=== PATIENT | female | born 1975 | race Caucasian/White ===

== ENCOUNTER 2019-09-14 16:19 | Outpatient (CLI) | payer SELFPAY ==
--- NOTE | 2019-09-14 17:10 | US_ITS ---
WS: [id number] THYROID ULTRASOUND HISTORY: enlarged thyroid COMPARISON: 01/14/2017 Right lobe: 6.6 cm x 3.3 cm x 2.6 cm. Volume: 30.0 cm3. Markedly enlarged heterogeneous lobulated gland with increased vascularity. No discrete nodule is chandu ntified. Gland has slightly increased in size since the prior examination. Left lobe: 5.9 cm x 2.3 cm x 1.7 cm. Volume: 11.8 cm3. Enlarged gland with diffuse coarsened echotexture and lobulation. No discrete nodule. Marked increase d vascularity. Isthmus: 0.6 cm. US/US thyroid [id number] IMPRESSION: 1. Markedly enlarged heterogeneous hypervascular thyroid gland. 2. Slightly progressed since 2017. 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
== END 2019-09-14 16:20 | disposition home or self-care (01) ==
LOC: RAD 16:24
PROVIDERS: Family Provider Nurse Practitioner Family; PCP Nurse Practitioner Family; Visit Provider Registered Nurse
DX: E04.9 Nontoxic goiter, unspecified (principal); E61.1 Iron deficiency; E06.3 Autoimmune thyroiditis
CPT/HCPCS: 76536; 80053; 82607; 84439; 84443; 85025

== ENCOUNTER → 2019-09-20 10:37 | Outpatient (BNVA) | payer SELFPAY | PROVIDERS: Family Provider Nurse Practitioner Family; PCP Nurse Practitioner Family; Visit Provider Registered Nurse | DX: E61.1 Iron deficiency (principal); E06.3 Autoimmune thyroiditis; F41.9 Anxiety disorder, unspecified; F32.9 Major depressive disorder, single episode, unspecified | CPT/HCPCS: 82607; 82746; 83540; 83550; 84466 ==

== ENCOUNTER → 2019-09-29 13:54 | Outpatient (BNVA) | payer SELFPAY | PROVIDERS: Family Provider Nurse Practitioner Family; PCP Nurse Practitioner Family; Visit Provider Registered Nurse | DX: E61.1 Iron deficiency (principal); F32.9 Major depressive disorder, single episode, unspecified; F41.9 Anxiety disorder, unspecified | CPT/HCPCS: 82272 ==

== ENCOUNTER → 2019-11-09 11:49 | Outpatient (BNVA) | payer SELFPAY | PROVIDERS: Family Provider Nurse Practitioner Family; PCP Nurse Practitioner Family; Visit Provider Registered Nurse | DX: I10 Essential (primary) hypertension (principal); E03.9 Hypothyroidism, unspecified; D50.9 Iron deficiency anemia, unspecified | CPT/HCPCS: 84439; 84443; 84480; 85025 ==

== ENCOUNTER → 2020-01-03 09:38 | Outpatient (BNVA) | payer SELFPAY | PROVIDERS: Family Provider Nurse Practitioner Family; PCP Nurse Practitioner Family; Visit Provider Registered Nurse | DX: E61.1 Iron deficiency (principal); E03.9 Hypothyroidism, unspecified; N64.4 Mastodynia; N63.10 Unspecified lump in the right breast, unspecified quadrant; N64.3 Galactorrhea not associated with childbirth; J45.20 Mild intermittent asthma, uncomplicated | CPT/HCPCS: 84443; 85025 ==

== ENCOUNTER → 2020-08-22 10:57 | Outpatient (BNVA) | payer SELFPAY | PROVIDERS: Family Provider Nurse Practitioner Family; PCP Nurse Practitioner Family; Visit Provider Registered Nurse | DX: E03.9 Hypothyroidism, unspecified (principal); E61.1 Iron deficiency; I10 Essential (primary) hypertension; G60.9 Hereditary and idiopathic neuropathy, unspecified | CPT/HCPCS: 84432; 84443; 85025; 86376; 86800 ==

== ENCOUNTER → 2020-09-12 09:56 | Outpatient (BNVA) | payer SELFPAY | PROVIDERS: Family Provider Nurse Practitioner Family; PCP Nurse Practitioner Family; Referring Provider Registered Nurse; Visit Provider Internal Medicine | DX: E03.9 Hypothyroidism, unspecified (principal); E06.3 Autoimmune thyroiditis; N64.3 Galactorrhea not associated with childbirth | CPT/HCPCS: 99204 ==

== ENCOUNTER → 2020-09-14 08:26 | Outpatient (BNVA) | payer SELFPAY | PROVIDERS: Family Provider Nurse Practitioner Family; PCP Nurse Practitioner Family; Visit Provider Internal Medicine | DX: E03.9 Hypothyroidism, unspecified (principal) | CPT/HCPCS: 84439; 84443; 84480 ==

== ENCOUNTER → 2020-10-02 08:29 | Outpatient (BNVA) | payer SELFPAY | PROVIDERS: Family Provider Nurse Practitioner Family; PCP Nurse Practitioner Family; Visit Provider Internal Medicine | DX: E03.9 Hypothyroidism, unspecified (principal); N64.3 Galactorrhea not associated with childbirth | CPT/HCPCS: 84146 ==

== ENCOUNTER 2020-11-02 10:18 | Outpatient (CLI) | payer SELFPAY ==
--- NOTE | 2020-11-02 11:00 | MR_ITS ---
WS: [id number] MRI BRAIN WITH AND WITHOUT CONTRAST HISTORY: migraine COMPARISON: CT head 10/16/2014 TECHNIQUE: Multiplanar imaging performed through the brain with MultiHance 15 ml's IV. No acute infarcts are seen. Dyson-white matter differentiation is well preserved. No susceptibility artifacts or prior lacunar infarcts. Ventricles and extra-axial spaces are normal. Clivus and pituitary gland are normal. This study was not performed as a pituitary MRI but no abnorma lity at the sella turcica. Visualized posterior fossa and brainstem are also normal. Postcontrast images are negative for masses or vascular malformations. Dural venous sinuses are normal. Paranasal sinuses: Well aerated with no significant disease. Mastoid air cells: Normal. Calvarium and scalp: Normal. MR/MR head wo/w con [id number] IMPRESSION: 1. Normal MRI brain. No infarct or mass. 2. No abnormality noted in the sella turcica or pituitary gland.
[2020-11-02] MEDS: gadobenate dimeglumine 20 mL vial IV (11:51)
== END 2020-11-02 10:19 | disposition home or self-care (01) ==
LOC: RADSHAW 10:23
PROVIDERS: PCP Nurse Practitioner Family; Visit Provider Internal Medicine
DX: G43.909 Migraine, unspecified, not intractable, without status migrainosus (principal)
CPT/HCPCS: 70553; A9577

== ENCOUNTER → 2021-02-14 08:48 | Outpatient (BNVA) | payer OTHER, SELFPAY | PROVIDERS: PCP Registered Nurse; Visit Provider Registered Nurse | DX: F41.9 Anxiety disorder, unspecified (principal); F32.9 Major depressive disorder, single episode, unspecified; G60.9 Hereditary and idiopathic neuropathy, unspecified; Z20.822 Contact with and (suspected) exposure to COVID-19 | CPT/HCPCS: 87635 ==

== ENCOUNTER → 2021-10-29 11:35 | Outpatient (BNVA) | payer MEDICAID, SELFPAY | PROVIDERS: PCP Registered Nurse; Visit Provider Registered Nurse | DX: G60.9 Hereditary and idiopathic neuropathy, unspecified (principal); F41.9 Anxiety disorder, unspecified; F32.9 Major depressive disorder, single episode, unspecified; E06.3 Autoimmune thyroiditis; E61.1 Iron deficiency | CPT/HCPCS: 84443; 85025 ==

== ENCOUNTER → 2022-10-20 09:54 | Outpatient (BNVA) | payer MEDICAID, SELFPAY | PROVIDERS: PCP Registered Nurse; Visit Provider Registered Nurse | DX: E06.3 Autoimmune thyroiditis (principal); F41.9 Anxiety disorder, unspecified; F32.9 Major depressive disorder, single episode, unspecified; E22.1 Hyperprolactinemia; G60.9 Hereditary and idiopathic neuropathy, unspecified; E03.9 Hypothyroidism, unspecified; G62.9 Polyneuropathy, unspecified; E61.1 Iron deficiency; R53.83 Other fatigue | CPT/HCPCS: 80053; 84146; 84439; 84443; 84481; 85025; 86038 ==

== ENCOUNTER → 2023-01-26 12:22 | Outpatient (BNVA) | payer MEDICAID, SELFPAY | PROVIDERS: PCP Registered Nurse; Visit Provider Internal Medicine Rheumatology | DX: Z79.899 Other long term (current) drug therapy (principal); M19.90 Unspecified osteoarthritis, unspecified site; Z11.59 Encounter for screening for other viral diseases; M45.6 Ankylosing spondylitis lumbar region | CPT/HCPCS: 36415; 82306; 85651; 86140; 86431; 86480; 86704; 86803; 86812; 87340 ==

== ENCOUNTER → 2023-06-18 09:34 | Outpatient (BNVA) | payer MEDICAID, SELFPAY | PROVIDERS: PCP Registered Nurse; Visit Provider Registered Nurse | DX: E03.9 Hypothyroidism, unspecified (principal); F41.9 Anxiety disorder, unspecified; F32.9 Major depressive disorder, single episode, unspecified; M79.7 Fibromyalgia | CPT/HCPCS: 80053; 84443; 85025 ==

== ENCOUNTER → 2024-02-18 11:05 | Outpatient (BNVA) | payer MEDICAID, SELFPAY | PROVIDERS: PCP Registered Nurse; Visit Provider Registered Nurse | DX: F32.A Depression, unspecified (principal); E03.9 Hypothyroidism, unspecified; R39.9 Unspecified symptoms and signs involving the genitourinary system | CPT/HCPCS: 80053; 81000; 84439; 84443; 85025 ==

== ENCOUNTER → 2024-06-21 08:25 | Outpatient (BNVA) | payer MEDICAID, SELFPAY | PROVIDERS: PCP Registered Nurse; Visit Provider Registered Nurse | DX: Z01.419 Encounter for gynecological examination (general) (routine) without abnormal findings (principal); E03.9 Hypothyroidism, unspecified; E22.1 Hyperprolactinemia; Z11.4 Encounter for screening for human immunodeficiency virus [HIV] | CPT/HCPCS: 84146; 84439; 84443; 87070; 87205; 87624; 87806 ==

== ENCOUNTER → 2024-06-22 08:25 | Outpatient (BNVA) | payer MEDICAID, SELFPAY | PROVIDERS: PCP Registered Nurse; Visit Provider Registered Nurse | DX: Z01.419 Encounter for gynecological examination (general) (routine) without abnormal findings (principal) | CPT/HCPCS: 87491; 87591; 87661 ==

== ENCOUNTER 2024-10-31 16:46 | Emergency (ER) | payer MEDICAID, SELFPAY ==
[2024-10-31 16:46] VITALS: BP 130/75; PULSE 82; RESP 16; TEMP 36.7; O2SAT 96; BMI 26.4
--- NOTE | 2024-10-31 16:47 | ECG_ITS ---
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 Measurements Intervals [place] Rate: 82 P: 60 MI: 141 QRS: 74 QRSD: 105 T: 48 QT: 373 QTc: 437 Interpretive Statements SINUS RHYTHM INCOMPLETE RIGHT BUNDLE BRANCH BLOCK [90+ ms QRS DURATION, TERMINAL R IN V1/V2, 40+ ms S IN I/aVL/V4/V5/V6] Compared to ECG 06/28/2019 01:16:21 No significant changes Electronically Signed On 10-31-2024 21:29:59 CDT by Titi Perez M.D. [id number]
--- NOTE | 2024-10-31 16:47 | XRR_ITS ---
PROCEDURE INFORMATION: Exam: XR Chest Exam date and time: 10/31/2024 4:48 PM Age: 49 years old Clinical indication: Pain; Chest pressure; Additional info: Cp TECHNIQUE: Imaging protocol: Radiologic exam of the chest. Views: 1 view. COMPARISON: No relevant prior studies available. FINDINGS: Lungs: Unremarkable. No consolidation. Pleural spaces: Unremarkable. No pleural effusion. No pneumothorax. Heart/Mediastinum: Unremarkable. No cardiomegaly. Bones/joints: Unremarkable. XR/XR chest 1V portable [id number] IMPRESSION: No acute findings.
--- NOTE | 2024-10-31 16:50 | ED_ITS ---
HPI - Chest Pain 2 General: Chief Complaint: Chest Pain Stated Complaint: chest pain - dizziness Time Seen by Provider: 10/31/24 16:48 Source: patient and EMS Mode of arrival: EMS Limitations: no limitations History of Present Illness: 49-year-old female who states that she h as been having chest pain that started roughly an hour ago says a pressure pain in the center of her chest rates it a 7 out of 10 she denies any diaphoresis no history of heart disease states she has been under lots of stress lately. She is received aspirin nitro and route no improvement. She denies any cough or fever Associated symptoms: Deny abdominal pain, dyspnea, fever(s), nausea or vomiting Related Data Home Medications ?Medication ?Instructions ?Recorded ?Confirmed multivitamin 1 tab PO DAILY 05/31/2410/10 Previous Rx's ?Medication ?Instructions ?Recorded pregabalin 150 mg capsule (Lyrica) 150 mg PO TID 30 da ys #90 caps 05/31/24 levothyroxine 88 mcg tablet See Rx Instructions .Route 07/07/24 .COMPLEX #90 tabs paroxetine HCl 40 mg tablet See Rx Instructions .Route 07/07/24 .COMPLEX #90 tabs albuterol sulfate 90 mcg/actuation See Rx Instructions .Route 07/29/24 aerosol inhaler (Ventolin HFA) .COMPLEX #18 grams Allergies Allergy/AdvReac Type Severity Reaction Status Date / Time methocarbamol (From Robaxin) Allergy Severe Siezure Verified 06/21/24 13:39 gabapentin Allergy Mild ADR-Migrain Verified 06/21/24 13:39 e Review of Systems 2 Const: Denies: fever(s), chills, body aches or change in appetite ENMT: Denies: throat pain or dental pain Card: Reports: chest pain Resp: Denies: dyspnea GI: Denies: abdominal pain, nausea, vomiting or diarrhea Musc: Denies: neck pain or back pain Skin/Breast: Denies: rash Neuro: Denies: headache(s) PFSH ED 2 PFSH: Medical History Uveitis History of recurrent uveitis, not currently active Inflammatory arthritis Fibromyalgia Joint pain High risk medication use Enlarged thyroid Iron deficiency Anxiety and depression Peripheral neuropathy, idiopathic Surgical History Hx of tubal ligation History of open reduction and internal fixation (ORIF) procedure Family History Other Diabetes Family history of premature coronary artery disease Heart disease Hypertension Rheumatoid arthritis Denies family history of Lupus Chronic kidney disease (CKD) Lung disease Cancer Stroke Social History Smoking and tobacco/nicotine status: current every day tobacco/nicotine user Alcohol intake: current Alcohol intake frequency: holidays/special occasions only Substance/Drug Use: never Adopted: No Caregiver/support person: No Lives independently: No Household members: family service: No Current occupational status: unemployed Sexually active: Yes Do you think of yourself as: Straight/Heterosexual Current gender identity: Female Physical Exam 2 Const: COMMON NORMALS: no acute distress, patient oriented x3 and healthy appearing HENMT: COMMON NORMALS: normocephalic and atraumatic HEAD & SCALP: n ormocephalic and atraumatic Eye: COMMON NORMALS: conjunctivae normal CONJUNCTIVA: Yes conjunctivae normal Neck/C-Spine: COMMON NORMALS: full ROM and supple Chest: COMMONS NORMALS: normal inspection of the chest and normal palpation of entire chest wall Resp: COMMON NORMALS: normal respiratory effort, No retractions, No use of accessory muscles and clear to auscultation bilaterally AUSCULTATION: clear to auscultation bilaterally Cardio: COMMON NORMALS: regular rate, regular rhythm and No murmurs present (Cardio) RATE: regular rate RHYTHM: regular rhythm GI: COMMON NORMALS: Normal to inspection, nondistended, normoactive bowel sounds present, Soft to palpation, non-tender and no masses PALPATION: Yes Soft to palpation Extremity: COMMON NORMALS: normal to inspection and full ROM Neuro: COMMON NORMALS: patient oriented x3, moves all extremities and no focal motor deficits Psych: COMMON NORMALS: mental status grossly normal, Normal thought process present and cooperative THOUGHT PROCESS: Normal thought process present Skin: COMMON NORMALS: no rashes or lesions noted and no wounds GENERAL SKIN EXAM: no rashes or lesions noted Course 2 Vital Signs: Vital signs: Vital Signs Temperature 98.1 F 10/31/24 16:46 Pulse Rate 68 10/31/24 18:00 Respiratory Rate 18 10/31/24 18:07 Blood Pressure 110/68 10/31/24 18:00 Pulse Oximetry 98 10/31/24 18:00 Oxygen Delivery Me thod Room Air 10/31/24 18:00 MDM - Chest Pain Medical Decision Making Patient presents for chest pains atypical in nature initial repeat troponin are negative no signs of ACS she has no signs of dissection or pulm embolism her pains improved here she is stable for discharge follow-up with PCP return if worsening. Medical Records I reviewed the patient's medical records. Lab Data I reviewed the patient's lab results. 10/31/24 16:57 10/31/24 16:57 Radiology Impressions Chest X-Ray 10/31/24 16:47 IMPRESSION: No acute findings. Laboratory Results WBC 5.99 10^3/uL (3.29-11.43) 10/31/24 16:57 RBC 3.68 10^6/uL (3.85-5.65) L 10/31/24 16:57 Hgb 8.80 g/dL (11.27-16.99) L 10/31/24 16:57 Hct 28.8 % (36-47) L 10/31/24 16:57 MCV 78.3 fl (85-98) L 10/31/24 16:57 MCH 23.9 pg (27-33) L 10/31/24 16:57 MCHC 30.6 g/dL (30-55) 10/31/24 16:57 RDW 23.2 % (12.1-15.1) H 10/31/24 16:57 Plt Count 309 10^3/cmm (157-399) 10/31/24 16:57 MPV 8.7 fL (7.4-10.4) 10/31/24 16:57 Neut % (Auto) 52.2 % 10/31/24 16:57 Lymph % (Auto) 36.7 % 10/31/24 16:57 [place] % (Auto) 8.3 % 10/31/24 16:57 Eos % (Auto) 1.7 % 10/31/24 16:57 Baso % (Auto) 0.8 % 10/31/24 16:57 Neut # (Auto) 3.12 10^3/uL (1.8-7.7) 10/31/24 16:57 Lymph # (Auto) 2.2 10^3/uL (0.8-4.8) 10/31/24 16:57 [place] # (Auto) 0.5 10^3/uL (0.2-0.9) 10/31/24 16:57 Eos # (Auto) 0.1 10^3/uL (0.0-0.8) 10/31/24 16:57 Baso # (Auto) 0.1 10^3/uL (0.0-0.1) 10/31/24 16:57 Nucleated RBC % (auto) 0 % 10/31/24 16:57 Nucleated RBCs # 0.0 /100WBC 10/31/24 16:57 Sodium 138 mmol/L (136-145) 10/31/24 16:57 Potassium 3.8 mmol/L (3.5-5.1) 10/31/24 16:57 Chloride 103 mmol/L (98-107) 10/31/24 16:57 Carbon Dioxide 23 mmol/L (22-29) 10/31/24 16:57 Anion Gap 15.8 (5-19) 10/31/24 16:57 BUN 15 mg/dL (6-20) 10/31/24 16:57 Creatinine 0.5 mg/dL (0.5-0.9) 10/31/24 16:57 GFR Calculation 132.2 mL/min (90-130) H 10/31/24 16:57 Glucose 92 mg/dL (65-115) 10/31/24 16:57 Calculated Osmolality 286 mOsm/kg (285-295) 10/31/24 16:57 Calcium 8.7 mg/dL (8.5-10.5) 10/31/24 16:57 Total Bilirubin 0.2 mg/dL (0.15-1.2) 10/31/24 16:57 AST 10 U/L (0-32) 10/31/24 16:57 ALT < 5 U/L (0-33) 10/31/24 16:57 Alkaline Phosphatase 45 U/L (35-105) 10/31/24 16:57 Troponin T Baseline < 6 ng/L (0-10) 10/31/24 16:57 Troponin T 120 Minute 6.00 ng/L (0-10) 10/31/24 18:45 Delta Troponin T 0.74317 ABS# (0-10) 10/31/24 18:45 Total Protein 7.1 g/dL (6.6-8.7) 10/31/24 16:57 Albumin 4.0 g/dL (3.5-5.2) 10/31/24 16:57 Globulin 3.1 g/dL (1.3-4.6) 10/31/24 16:57 Lipase 14 U/L (13-60) 10/31/24 16:57 TSH 7.73 uIU/mL (0.27-4.20) H 10/31/24 16:57 All radiology interpretation(s) finalized by discharge EKG Data EKG 1: I personally reviewed and interpreted this EKG as follows: EKG interpretation date: 10/31/24 EKG interpretation time: 16:47 Interpretation: nsr hr [address] elevation qrs 105qtc 412 Discharge Plan Discharge Patient Disposition: Home Clinical Impression: Chest pain Condition: Stable Prescriptions: No Action multivitamin Tablet 1 tab PO DAILY pregabalin [Lyrica] 150 mg capsule 150 mg PO TID 30 Days Qty: 90 2RF levothyroxine 88 mcg tablet See Rx Instructions .ROUTE .COMPLEX Qty: 90 0RF Dose Instruction: TAKE 1 TABLET BY MOUTH DAILY Rx Instructions: TAKE 1 TABLET BY MOUTH DAILY paroxetine HCl 40 mg tablet See Rx Instructions .ROUTE .COMPLEX Qty: 90 0RF Dose Instruction: TAKE 1 TABLET BY MOUTH DAILY Rx Instructions: TAKE 1 TABLET BY MOUTH DAILY albuterol sulfate [Ventolin HFA] 90 mcg/actuation HFA aerosol inhaler See Rx Instructions .ROUTE .COMPLEX Qty: 18 0RF Dose Instruction: INHALE 1 PUFF FOUR TIMES DAILY NEEDED FOR SHORTNESS OF BREATH OR WHEEZING Rx Instructions: INHALE 1 PUFF FOUR TIMES DAILY NEEDED FOR SHORTNESS OF BREATH OR WHEEZING Discharge Orders: Discharge ED (Routine); Ordered 10/31/24 Ordered By: Jaleel Santiago Referrals: Shila Yanez FNP [Primary Care Provider] - 4-7 days Discharge Diet: Advance as tolerated Discharge Activity: Resume usual activity Patient Instructions: Chest Pain (ED) Print Language: Occitan Coding Level of Care Code ED Speech Language Specialist for Ирина Joshi
[2024-10-31 17:05] LABS: Basophils # 0.1 10^3/uL (0.0-0.1); Basophils % 0.8 %; Eosinophils # 0.1 10^3/uL (0.0-0.8); Eosinophils % 1.7 %; Hematocrit 28.8 % (36-47); Lymphocytes # 2.2 10^3/uL (0.8-4.8); Lymphocytes % 36.7 %; Mean Corpuscular HGB Conc 30.6 g/dL (30-55); Mean Corpuscular Hemoglobin 23.9 pg (27-33); Mean Corpuscular Volume 78.3 fl (85-98); Mean Platelet Volume 8.7 fL (7.4-10.4); Monocytes # 0.5 10^3/uL (0.2-0.9); Monocytes % 8.3 %; Neutrophils # 3.12 10^3/uL (1.8-7.7); Neutrophils % 52.2 %; Nucleated Red Blood Cells % 0 %; Platelet Count 309 10^3/cmm (157-399); Red Blood Count 3.68 10^6/uL (3.85-5.65); Red Cell Distribution Width 23.2 % (12.1-15.1); White Blood Count 5.99 10^3/uL (3.29-11.43)
[2024-10-31 17:24] LABS: Slide Review Slide Review Perform
[2024-10-31 17:28] LABS: Troponin(5th) Baseline < 6 ng/L (0-10)
[2024-10-31 17:46] LABS: Alanine Aminotransferase < 5 U/L (0-33); Alkaline Phosphatase 45 U/L (35-105); Anion Gap 15.8 (5-19); Aspartate Amino Transferase 10 U/L (0-32); Blood Urea Nitrogen 15 mg/dL (6-20); Calcium 8.7 mg/dL (8.5-10.5); Carbon Dioxide 23 mmol/L (22-29); Chloride 103 mmol/L (98-107); Creatinine Clr Calc Pharmacy 118.7533; Globulin 3.1 g/dL (1.3-4.6); Glomerular Filtration Rate 132.2 mL/min (90-130); Glucose 92 mg/dL (65-115); Lipase 14 U/L (13-60); Osmolality Calculated 286 mOsm/kg (285-295); Potassium 3.8 mmol/L (3.5-5.1); Sodium 138 mmol/L (136-145); Thyroid Stimulating Hormone 7.73 uIU/mL (0.27-4.20); Total Bilirubin 0.2 mg/dL (0.15-1.2); Total Protein 7.1 g/dL (6.6-8.7)
[2024-10-31 18:00] VITALS: BP 110/68; PULSE 68; O2SAT 98
[2024-10-31 18:07] VITALS: RESP 18
[2024-10-31] MEDS: morphine 4 mg/mL SDV 1 mL IVP (18:07)
--- NOTE | 2024-10-31 18:47 | ECG_ITS ---
[facility] Test Date: 2024-10-31 Pat Name: Gail Momin Department: Room: Gender: Female Prescriptionist: : 1975 Requested By: Jaleel Santiago Order Number: [id number] Cheri MD: Titi Perez M.D. Measurements Intervals [place] Rate: 69 P: 48 [place]: 141 QRS: 78 QRSD: 102 T: 51 QT: 390 QTc: 419 Interpretive Statements SINUS RHYTHM INCOMPLETE RIGHT BUNDLE BRANCH BLOCK [90+ ms QRS DURATION, TERMINAL R IN V1/V2, 40+ ms S IN I/aVL/V4/V5/V6] Compared to ECG 10/31/2024 16:47:00 No significant changes Electronically Signed On 10-31-2024 21:36:02 CDT by Titi Perez M.D. [email or web address] [id number]
[2024-10-31 19:07] LABS: Troponin 5 2HR Delta 0.00001 ABS# (0-10)
[2024-10-31 19:19] VITALS: BP 128/45; PULSE 74; RESP 15; O2SAT 98
[2024-10-31 19:20] VITALS: BP 128/45; PULSE 74; O2SAT 98
== END 2024-10-31 19:20 | disposition home or self-care (01) ==
PROVIDERS: Emergency Provider Emergency Medicine; PCP Registered Nurse
DX: R07.9 Chest pain, unspecified (principal); Z72.0 Tobacco use
CPT/HCPCS: 36415; 71045; 80053; 83690; 84443; 84484; 85025; 93005; 96374; 99285; J2270

== ENCOUNTER 2024-11-23 09:16 | Outpatient (CLI) | payer MEDICAID, SELFPAY ==
--- NOTE | 2024-11-23 09:21 | US_ITS ---
WS: [id number] THYROID ULTRASOUND HISTORY: AUTOIMMUNE THYROIDITIS/ENLARGED THYROID COMPARISON: 09/14/2019 Right lobe: 3.5 cm x 2.4 cm x 5.5 cm (w x ap x l). Volume: 22.2 cm3. Enlarged heterogeneous, hypoechoic thyroid with echogenic fibrous septa. Mild increased vascularity. Size is slightly decreased since the prior study. No discrete nodule. Left lobe: 2.4 cm x 2.1 cm x 5.7 cm (w x ap x l). Volume: 13.4 cm3. Mildly enlarged hypoechoic nodular thyroid. Echogenic fibrous septa. No discrete mass. Mild increased vascularity. Isthmus: 0.8 cm. US/US thyroid [id number] IMPRESSION: 1. 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 2. No discrete nodules for which biopsy should be recommended.
== END 2024-11-23 09:17 | disposition home or self-care (01) ==
PROVIDERS: PCP Registered Nurse; Visit Provider Registered Nurse
DX: E06.3 Autoimmune thyroiditis (principal); E04.9 Nontoxic goiter, unspecified; R93.89 Abnormal findings on diagnostic imaging of other specified body structures
CPT/HCPCS: 76536

== ENCOUNTER 2024-11-27 21:42 | Inpatient (IN) | payer MEDICAID, SELFPAY ==
[2024-11-27 21:44] VITALS: BP 111/73; PULSE 91; RESP 17; TEMP 36.8; O2SAT 96; BMI 24.5
--- NOTE | 2024-11-27 21:59 | PC.NURSE ---
Called Poison Control on overdose of Pregablin, fluoxetine, and Headache relief: Acetaminophen 250mg/ASA 250mg/Caffeine 65mg. Per the RN from poison control monitor for drowsiness, tachypnea, ataxia, increased anxiety. If pt's labs works shows low K+ then tx and elevated acetaminophen levels then start antidote. Per the RN hold benzos for time being due to possible drowsiness, and use fluids for supportive care if needed.
[2024-11-27 22:01] LABS: Basophils # 0.1 10^3/uL (0.0-0.1); Basophils % 0.6 %; Eosinophils # 0.1 10^3/uL (0.0-0.8); Hematocrit 30.5 % (36-47); Lymphocytes # 2.6 10^3/uL (0.8-4.8); Lymphocytes % 30.9 %; Mean Corpuscular HGB Conc 30.2 g/dL (30-55); Mean Corpuscular Hemoglobin 23.7 pg (27-33); Mean Corpuscular Volume 78.6 fl (85-98); Mean Platelet Volume 9.7 fL (7.4-10.4); Monocytes # 0.9 10^3/uL (0.2-0.9); Monocytes % 10.8 %; Neutrophils # 4.67 10^3/uL (1.8-7.7); Neutrophils % 56.5 %; Nucleated Red Blood Cells % 0 %; Platelet Count 383 10^3/cmm (157-399); Red Blood Count 3.88 10^6/uL (3.85-5.65); Red Cell Distribution Width 21.7 % (12.1-15.1); White Blood Count 8.26 10^3/uL (3.29-11.43)
--- NOTE | 2024-11-27 22:05 | ED_ITS ---
Documented by User: Jaleel Santiago MD 11/27/24 22:08 HPI - Overdose 2 General: Chief Complaint: Overdose Stated Complaint: SI Time Seen by Provider: 11/27/24 21:43 Source: patient and EMS Mode of arrival: EMS Limitations: no limitations History of Present Illness: 49-year-old female is here after a suici de attempt by overdose she states that she took her bottle of pregabalin along with fluoxetine an unknown amount of Tylenol at 8:30 PM. She states that it is Mother's Day and she misses her mom and was trying to kill herself. Related Data Home Medications ?Medication ?Instructions ?Recorded ?Confirmed multivitamin 1 tab PO DAILY 05/31/2410/19 Previous Rx's ?Medication ?Instructions ?Recorded albuterol sulfate 90 mcg/actuation See Rx Instructions .Route 07/29/24 aerosol inhaler (Ventolin HFA) .COMPLEX #18 grams ferrous sulfate 325 mg (65 mg 325 mg PO DAILY 30 days #30 tabs 11/08/24 iron) tablet fluoxetine 20 mg capsule (Prozac) 20 mg PO DAILY 30 da ys #30 caps 11/08/24 levothyroxine 88 mcg tablet See Rx Instructions .Route 11/08/24 .COMPLEX #30 tabs pregabalin 150 mg capsule (Lyrica) 150 mg PO TID 30 da ys #90 caps 11/08/24 Allergies Allergy/AdvReac Type Severity Reaction Status Date / Time methocarbamol (From Robaxin) Allergy Severe Siezure Verified 11/08/24 10:57 gabapentin Allergy Mild ADR-Migrain Verified 11/08/24 10:57 e Review of Systems 2 Const: Denies: fever(s), chills, body aches or change in appetite ENMT: Denies: throat pain or dental pain Card: Denies: chest pain Resp: Denies: dyspnea GI: Denies: abdominal pain, nausea, vomiting or diarrhea Musc: Denies: neck pain or back pain Skin/Breast: Denies: rash Neuro: Denies: headache(s) Psych: Reports: depression and suicidal ideation PFS ED 2 PFSH: Medical History Uveitis History of recurrent uveitis, not currently active Inflammatory arthritis Fibromyalgia Joint pain High risk medication use Enlarged thyroid Iron deficiency Anxiety and depression Peripheral neuropathy, idiopathic Surgical History Hx of tubal ligation History of open reduction and internal fixation (ORIF) procedure Family History Other Diabetes Family history of premature coronary artery disease Heart disease Hypertension Rheumatoid arthritis Denies family history of Lupus Chronic kidney disease (CKD) Lung disease Cancer Stroke Social History Smoking and tobacco/nicotine status: current every day tobacco/nicotine user Alcohol intake: current Alcohol intake frequency: holidays/special occasions only Substance/Drug Use: never Adopted: No Caregiver/support person: No Lives independently: No Household members: family service: No Current occupational status: unemployed Sexually active: Yes Do you think of yourself as: Straight/Heterosexual Current gender identity: Female Physical Exam 2 Const: COMMON NORMALS: no acute distress, patient oriented x3 and healthy appearing HENMT: COMMON NORMALS: normocephalic and atraumatic HEAD & SCALP: n ormocephalic and atraumatic Eye: COMMON NORMALS: conjunctivae normal CONJUNCTIVA: Yes conjunctivae normal Neck/C-Spine: COMMON NORMALS: full ROM and supple Chest: COMMONS NORMALS: normal inspection of the chest Resp: COMMON NORMALS: normal respiratory effort Cardio: COMMON NORMALS: regular rate RATE: regular rate Extremity: COMMON NORMALS: normal to inspection and full ROM Neuro: COMMON NORMALS: patient oriented x3, moves all extremities and no focal motor deficits Psych: COMMON NORMALS: mental status grossly normal, Normal thought process present and cooperative MOOD & AFFECT: Yes depressed mood THOUGHT PROCESS: Normal thought process present THOUGHT CONTENT: Yes Suicidality present Skin: COMMON NORMALS: no rashes or lesions noted and no wounds GENERAL SKIN EXAM: no rashes or lesions noted Course 2 Vital Signs: Vital signs: Vital Signs Temperature 98.0 F 11/28/24 00:42 Pulse Rate 87 11/28/24 00:48 Respiratory Rate 16 11/28/24 00:48 Blood Pressure 90/56 11/28/24 00:48 Pulse Oximetry 98 11/28/24 00:48 Oxygen Delivery Me thod Room Air 11/28/24 00:42 MDM - Overdose Lab Data 11/27/24 21:56 11/28/24 00:53 Laboratory Results WBC 8.26 10^3/uL (3.29-11.43) 11/27/24 21:56 RBC 3.88 10^6/uL (3.85-5.65) 11/27/24 21:56 Hgb 9.20 g/dL (11.27-16.99) L 11/27/24 21:56 Hct 30.5 % (36-47) L 11/27/24 21:56 MCV 78.6 fl (85-98) L 11/27/24 21:56 MCH 23.7 pg (27-33) L 11/27/24 21:56 MCHC 30.2 g/dL (30-55) 11/27/24 21:56 RDW 21.7 % (12.1-15.1) H 11/27/24 21:56 Plt Count 383 10^3/cmm (157-399) 11/27/24 21:56 MPV 9.7 fL (7.4-10.4) 11/27/24 21:56 Neut % (Auto) 56.5 % 11/27/24 21:56 Lymph % (Auto) 30.9 % 11/27/24 21:56 [place] % (Auto) 10.8 % 11/27/24 21:56 Eos % (Auto) 1.0 % 11/27/24 21:56 Baso % (Auto) 0.6 % 11/27/24 21:56 Neut # (Auto) 4.67 10^3/uL (1.8-7.7) 11/27/24 21:56 Lymph # (Auto) 2.6 10^3/uL (0.8-4.8) 11/27/24 21:56 [place] # (Auto) 0.9 10^3/uL (0.2-0.9) 11/27/24 21:56 Eos # (Auto) 0.1 10^3/uL (0.0-0.8) 11/27/24 21:56 Baso # (Auto) 0.1 10^3/uL (0.0-0.1) 11/27/24 21:56 Nucleated RBC % (auto) 0 % 11/27/24 21:56 Nucleated RBCs # 0.0 /100WBC 11/27/24 21:56 Sodium 136 mmol/L (136-145) 11/27/24 21:56 Potassium 4.0 mmol/L (3.5-5.1) 11/27/24 21:56 Chloride 102 mmol/L (98-107) 11/27/24 21:56 Carbon Dioxide 20 mmol/L (22-29) L 11/27/24 21:56 Anion Gap 18.0 (5-19) 11/27/24 21:56 BUN 14 mg/dL (6-20) 11/27/24 21:56 Creatinine 0.6 mg/dL (0.5-0.9) 11/27/24 21:56 GFR Calculation 107.2 mL/min (90-130) 11/27/24 21:56 Glucose 111 mg/dL (65-115) 11/27/24 21:56 Calculated Osmolality 283 mOsm/kg (285-295) L 11/27/24 21:56 Calcium 9.6 mg/dL (8.5-10.5) 11/27/24 21:56 Total Bilirubin 0.4 mg/dL (0.15-1.2) 11/27/24 21:56 AST 15 U/L (0-32) 11/27/24 21:56 ALT < 5 U/L (0-33) 11/27/24 21:56 Alkaline Phosphatase 53 U/L (35-105) 11/27/24 21:56 Total Protein 8.7 g/dL (6.6-8.7) 11/27/24 21:56 Albumin 4.3 g/dL (3.5-5.2) 11/27/24 21:56 Globulin 4.4 g/dL (1.3-4.6) 11/27/24 21:56 TSH 0.89 uIU/mL (0.27-4.20) 11/27/24 21:56 Salicylates 15.7 mg/dL (3-10) H 11/27/24 21:56 Urine Opiates Screen Negative ng/mL (Negative) 11/27/24 23:08 Acetaminophen 64.1 ug/mL (10-30) H 11/27/24 21:56 Ur Barbiturates Screen Negative ng/mL (Negative) 11/27/24 23:08 Ur Phencyclidine Scrn Negative ng/mL (Negative) 11/27/24 23:08 Ur Amphetamines Screen Negative ng/mL (Negative) 11/27/24 23:08 U Benzodiazepines Scrn Positive ng/mL (Negative) H 11/27/24 23:08 Urine Cocaine Screen Negative ng/mL (Negative) 11/27/24 23:08 U Marijuana (THC) Screen Positive ng/mL (Negative) H 11/27/24 23:08 Ethyl Alcohol < 10 mg/dL (0-10) 11/27/24 21:56 Discharge Plan Discharge Patient Disposition: Admitted As Inpatient Admit Provider: Filiberto Hernández Clinical Impression: Drug overdose Condition: Stable Coding Level of Care Code ED Tree Farmer for Chg Fwd Documented by User: Lanre Carranza, 11/28/24 02:46 HPI - Overdose 2 General: Chief Complaint: Overdose Stated Complaint: SI Time Seen by Provider: 11/27/24 21:43 Related Data Home Medications ?Medication ?Instructions ?Recorded ?Confirmed multivitamin 1 tab PO DAILY 05/31/2410/19 Previous Rx's ?Medication ?Instructions ?Recorded albuterol sulfate 90 mcg/actuation See Rx Instructions .Route 07/29/24 aerosol inhaler (Ventolin HFA) .COMPLEX #18 grams ferrous sulfate 325 mg (65 mg 325 mg PO DAILY 30 days #30 tabs 11/08/24 iron) tablet fluoxetine 20 mg capsule (Prozac) 20 mg PO DAILY 30 da ys #30 caps 11/08/24 levothyroxine 88 mcg tablet See Rx Instructions .Route 11/08/24 .COMPLEX #30 tabs pregabalin 150 mg capsule (Lyrica) 150 mg PO TID 30 da ys #90 caps 11/08/24 Allergies Allergy/AdvReac Type Severity Reaction Status Date / Time methocarbamol (From Robaxin) Allergy Severe Siezure Verified 11/08/24 10:57 gabapentin Allergy Mild ADR-Migrain Verified 11/08/24 10:57 e [facility] ED 2 PFSH: Medical History Uveitis History of recurrent uveitis, not currently active Inflammatory arthritis Fibromyalgia Joint pain High risk medication use Enlarged thyroid Iron deficiency Anxiety and depression Peripheral neuropathy, idiopathic Surgical History Hx of tubal ligation History of open reduction and internal fixation (ORIF) procedure Family History Other Diabetes Family history of premature coronary artery disease Heart disease Hypertension Rheumatoid arthritis Denies family history of Lupus Chronic kidney disease (CKD) Lung disease Cancer Stroke Social History Smoking and tobacco/nicotine status: current every day tobacco/nicotine user Alcohol intake: current Alcohol intake frequency: holidays/special occasions only Substance/Drug Use: never Adopted: No Caregiver/support person: No Lives independently: No Household members: family service: No Current occupational status: unemployed Sexually active: Yes Do you think of yourself as: Straight/Heterosexual Current gender identity: Female Course 2 Vital Signs: Vital signs: Vital Signs Temperature 98.0 F 11/28/24 00:42 Pulse Rate 87 11/28/24 00:48 Respiratory Rate 16 11/28/24 00:48 Blood Pressure 90/56 11/28/24 00:48 Pulse Oximetry 98 11/28/24 00:48 Oxygen Delivery La thod Room Air 11/28/24 00:42 MDM - Overdose Medical Decision Making 49-year-old patient checked out at shift change to fl. This patient had taken an intentional overdose as above. Blood pressure has fallen steadily since she has been here. She is a bit more groggy. Bicarbonate is 19, hemoglobin is 9. She is positive for benzodiazepines, alcohol is nondetectable. Initial acetaminophen is 64, 4-hour acetaminophen is pending. Because of hypotension, ingestion, and potential Tylenol overdose, she will be admitted to ICU. Spoke with both psychiatry and the hospitalist, who agree. Hospitalist will see the patient in the ER. Psychiatry will consult in the morning. Lab Data 11/27/24 21:56 11/28/24 00:53 Laboratory Results WBC 8.26 10^3/uL (3.29-11.43) 11/27/24 21:56 RBC 3.88 10^6/uL (3.85-5.65) 11/27/24 21:56 Hgb 9.20 g/dL (11.27-16.99) L 11/27/24 21:56 Hct 30.5 % (36-47) L 11/27/24 21:56 MCV 78.6 fl (85-98) L 11/27/24 21:56 MCH 23.7 pg (27-33) L 11/27/24 21:56 MCHC 30.2 g/dL (30-55) 11/27/24 21:56 RDW 21.7 % (12.1-15.1) H 11/27/24 21:56 Plt Count 383 10^3/cmm (157-399) 11/27/24 21:56 MPV 9.7 fL (7.4-10.4) 11/27/24 21:56 Neut % (Auto) 56.5 % 11/27/24 21:56 Lymph % (Auto) 30.9 % 11/27/24 21:56 [place] % (Auto) 10.8 % 11/27/24 21:56 Eos % (Auto) 1.0 % 11/27/24 21:56 Baso % (Auto) 0.6 % 11/27/24 21:56 Neut # (Auto) 4.67 10^3/uL (1.8-7.7) 11/27/24 21:56 Lymph # (Auto) 2.6 10^3/uL (0.8-4.8) 11/27/24 21:56 [place] # (Auto) 0.9 10^3/uL (0.2-0.9) 11/27/24 21:56 Eos # (Auto) 0.1 10^3/uL (0.0-0.8) 11/27/24 21:56 Baso # (Auto) 0.1 10^3/uL (0.0-0.1) 11/27/24 21:56 Nucleated RBC % (auto) 0 % 11/27/24 21:56 Nucleated RBCs # 0.0 /100WBC 11/27/24 21:56 Sodium 136 mmol/L (136-145) 11/27/24 21:56 Potassium 4.0 mmol/L (3.5-5.1) 11/27/24 21:56 Chloride 102 mmol/L (98-107) 11/27/24 21:56 Carbon Dioxide 20 mmol/L (22-29) L 11/27/24 21:56 Anion Gap 18.0 (5-19) 11/27/24 21:56 BUN 14 mg/dL (6-20) 11/27/24 21:56 Creatinine 0.6 mg/dL (0.5-0.9) 11/27/24 21:56 GFR Calculation 107.2 mL/min (90-130) 11/27/24 21:56 Glucose 111 mg/dL (65-115) 11/27/24 21:56 Calculated Osmolality 283 mOsm/kg (285-295) L 11/27/24 21:56 Calcium 9.6 mg/dL (8.5-10.5) 11/27/24 21:56 Total Bilirubin 0.4 mg/dL (0.15-1.2) 11/27/24 21:56 AST 15 U/L (0-32) 11/27/24 21:56 ALT < 5 U/L (0-33) 11/27/24 21:56 Alkaline Phosphatase 53 U/L (35-105) 11/27/24 21:56 Total Protein 8.7 g/dL (6.6-8.7) 11/27/24 21:56 Albumin 4.3 g/dL (3.5-5.2) 11/27/24 21:56 Globulin 4.4 g/dL (1.3-4.6) 11/27/24 21:56 TSH 0.89 uIU/mL (0.27-4.20) 11/27/24 21:56 Salicylates 15.7 mg/dL (3-10) H 11/27/24 21:56 Urine Opiates Screen Negative ng/mL (Negative) 11/27/24 23:08 Acetaminophen 64.1 ug/mL (10-30) H 11/27/24 21:56 Ur Barbiturates Screen Negative ng/mL (Negative) 11/27/24 23:08 Ur Phencyclidine Scrn Negative ng/mL (Negative) 11/27/24 23:08 Ur Amphetamines Screen Negative ng/mL (Negative) 11/27/24 23:08 U Benzodiazepines Scrn Positive ng/mL (Negative) H 11/27/24 23:08 Urine Cocaine Screen Negative ng/mL (Negative) 11/27/24 23:08 U Marijuana (THC) Screen Positive ng/mL (Negative) H 11/27/24 23:08 Ethyl Alcohol < 10 mg/dL (0-10) 11/27/24 21:56 No radiology studies performed this visit Discharge Plan Discharge Patient Disposition: Admitted As Inpatient Admit Provider: Filiberto Hernández Clinical Impression: Drug overdose Condition: Stable Coding Level of Care Code ED Tree Farmer for Ирина Joshi
[2024-11-27 22:25] LABS: Acetaminophen 64.1 ug/mL (10-30); Alanine Aminotransferase < 5 U/L (0-33); Albumin Level 4.3 g/dL (3.5-5.2); Alcohol Level < 10 mg/dL (0-10); Alkaline Phosphatase 53 U/L (35-105); Aspartate Amino Transferase 15 U/L (0-32); Blood Urea Nitrogen 14 mg/dL (6-20); Calcium 9.6 mg/dL (8.5-10.5); Carbon Dioxide 20 mmol/L (22-29); Chloride 102 mmol/L (98-107); Creatinine Clr Calc Pharmacy 99.4939; Globulin 4.4 g/dL (1.3-4.6); Glomerular Filtration Rate 107.2 mL/min (90-130); Glucose 111 mg/dL (65-115); Osmolality Calculated 283 mOsm/kg (285-295); Salicylate 15.7 mg/dL (3-10); Sodium 136 mmol/L (136-145); Total Bilirubin 0.4 mg/dL (0.15-1.2); Total Protein 8.7 g/dL (6.6-8.7)
--- NOTE | 2024-11-27 22:26 | ECG_ITS ---
QA on Request Test Date: 2024-11-27 Pat Name: Gail Momin Department: Room: Gender: Female Transmission Assembler: : 1975 Requested By: Jaleel Santiago Order Number: [id number] Cheri MD: Titi Perez M.D. Measurements Intervals [place] Rate: 67 P: 57 TN: 151 QRS: 62 QRSD: 103 T: 45 QT: 389 QTc: 412 Interpretive Statements SINUS RHYTHM INCOMPLETE RIGHT BUNDLE BRANCH BLOCK [90+ ms QRS DURATION, TERMINAL R IN V1/V2, 40+ ms S IN I/aVL/V4/V5/V6] Compared to ECG 10/31/2024 18:11:27 No significant changes Electronically Signed On 11-28-2024 15:07:19 CDT by Titi Perez M.D. [email or web address]
[2024-11-27 22:32] LABS: Thyroid Stimulating Hormone 0.89 uIU/mL (0.27-4.20)
[2024-11-27 22:52] VITALS: BP 94/61; PULSE 61; RESP 16; O2SAT 94
--- NOTE | 2024-11-27 22:53 | PC.NURSE ---
[facility] Pt served with copy of 96 [facility] by this RN and security. Pt A&Ox3, requesting her be updated on her file, and contacted with an update.
--- NOTE | 2024-11-27 23:16 | P.HP_ITS ---
Providers/Chief Complaint 2 Primary Care Provider: INOCENTE Daigle Chief Complaint: SI History of Present Illness Gail Momin is a 49 year old female with a past medical history significant for anxiety, depression, Minor's thyroiditis, asthma, neuropathy, fibromyalgia, arthritis, tobacco use, and multiple other comorbidities who presents to the emergency department with intentional drug overdose. Patient reports due to being mother states she was thinking of her mother. This made her depressed as her mother is . She proceeded to take fluoxetine, pregabalin, and acetaminophen/aspirin/caffeine in an attempt to end her life. Ingestion time at 2030. She currently endorses symptoms of heartburn and malaise. Denies alleviating or aggravating factors. Denies fevers, chills, nausea or emesis. Poison control contacted by ED. Initial Tylenol level found to be 64.1 ug/mL. Review of Systems 2 Narrative: A complete review of systems was obtained and is negative except as stated in HPI. Medications/Allergies Home Medications ?Medication ?Instructions ?Recorded ?Confirmed ?Last Taken ?Type multivitamin 1 tab PO DAILY 05/31/2410/19 Unknown History albuterol sulfate 90 mcg/actuation See Rx Instructions .Route 07/29/24 11/08/24 Unknown Rx aerosol inhaler (Ventolin HFA) .COMPLEX #18 grams ferrous sulfate 325 mg (65 mg 325 mg PO DAILY 30 days #30 tabs 11/08/24 11/08/24 Unknown Rx iron) tablet fluoxetine 20 mg capsule (Prozac) 20 mg PO DAILY 30 da ys #30 caps 11/08/24 11/08/24 Unknown Rx levothyroxine 88 mcg tablet See Rx Instructions .Route 11/08/24 11/08/24 Unknown Rx .COMPLEX #30 tabs pregabalin 150 mg capsule (Lyrica) 150 mg PO TID 30 da ys #90 caps 11/08/24 11/08/24 Unknown Rx Allergies Allergy/AdvReac Type Severity Reaction Status Date / Time methocarbamol (From Robaxin) Allergy Severe Siezure Verified 11/08/24 10:57 gabapentin Allergy Mild ADR-Migrain Verified 11/08/24 10:57 e PFSH Acute 2 PFSH: Medical History Uveitis History of recurrent uveitis, not currently active Inflammatory arthritis Fibromyalgia Joint pain High risk medication use Enlarged thyroid Iron deficiency Anxiety and depression Peripheral neuropathy, idiopathic Surgical History Hx of tubal ligation History of open reduction and internal fixation (ORIF) procedure Family History Other Diabetes Family history of premature coronary artery disease Heart disease Hypertension Rheumatoid arthritis Denies family history of Lupus Chronic kidney disease (CKD) Lung disease Cancer Stroke Social History Smoking and tobacco/nicotine status: current every day tobacco/nicotine user Alcohol intake: current Alcohol intake frequency: holidays/special occasions only Substance/Drug Use: never Adopted: No Caregiver/support person: No Lives independently: No Household members: family service: No Current occupational status: unemployed Sexually active: Yes Do you think of yourself as: Straight/Heterosexual Current gender identity: Female Vitals/I&O/Wt Last Vital Signs Temp 98.2 F 11/27/24 21:44 Pulse 91 11/27/24 21:44 Resp 17 11/27/24 21:44 BP 111/73 11/27/24 21:44 Pulse Ox 96 11/27/24 21:44 O2 Del Method Room Air 11/27/24 21:44 Weight last 48 hrs Weight 60.781 kg Physical Exam 2 Narrative: General: Patient is slightly lethargic but awakens to voice. Head: Normocephalic. Atraumatic. EOM intact. Neck: No JVD. Cardiovascular: RRR. No gallops. No murmurs. No peripheral edema. Lungs: Clear to auscultation, no use of accessory muscles, no crackles or wheezes. Skin: No jaundice. No rashes. Abdomen: Normal bowel sounds, abdomen soft and nontender. Genito Urinary: Genital exam not performed since complaints not related. Rectal: Rectal exam not performed since no symptoms indicated blood loss. Extremities: No cyanosis or clubbing. Musculoskeletal: 5/5 strength, normal range of motion, no swollen or erythematous joints. Neurological: Moves all 4 extremities. No myoclonus. Data 11/27/24 21:56 11/27/24 21:56 A&P Assessment and plan (1) Drug overdose: (2) Suicide attempt: (3) Metabolic acidosis: (4) Microcytic anemia: (5) Anxiety and depression: (6) Hypothyroidism (acquired): Plan Intentional drug overdose Suicide attempt History of anxiety and depression - Suicide precautions - Sitter - Poison control contacted, appreciate further recommendations - Trend Tylenol level, awaiting 4 hour level - Moniotor mentation - Monitor for worsening metabolic acidosis - Trend labs - Continuous telemetry monitoring - Supportive care - Psych consult Hypothyroidism - Continue home Synthroid History of neuropathy - Hold pregabalin due to overdose History of iron deficiency anemia - Hold iron pill for now DVT prophylaxis: Heparin CODE STATUS: Full code PDMP PDMP Reviewed: Not Reviewed Attestations 2 Medical Necessity Statement*: Patient presents with intentional drug overdose with expected hospitalization to cross two midnights for serial labs, telemetry monitoring, electrolyte management, and psychiatric care. Coding Level of Care Code Acute Code for Chg Fwd Diagnoses Drug overdose T50.901A Suicide attempt T14.91XA Metabolic acidosis E87.20 Microcytic anemia D50.9 Anxiety and depression F41.9; F32.9 Hypothyroidism (acquired) E03.9
[2024-11-27 23:23] LABS: Amphetamines Screen Urine Negative (Negative); Barbiturates Screen Urine Negative (Negative); Benzodiazepines Screen Urine Positive (Negative); Cocaine Screen Urine Negative (Negative); Opiate Screen Urine Negative (Negative); PCP Screen Urine Negative (Negative); THC Screen Urine Positive (Negative)
[2024-11-28] VITALS (145 sets, daily range): BP systolic 78–147; BP diastolic 44–85; PULSE 60–87; RESP 12–27; TEMP 36.6–36.9; O2SAT 78–98
--- NOTE | 2024-11-28 00:06 | PC.NURSE ---
Spoke with Monica HOWARD with Poison Control gave an update on labs and vitals. Per Poison Control recommendation pt's Salicylate levels should be drawn Q2hrs. Dr Hernández was notified.
[2024-11-28] MEDS: sodium chloride 0.9% 1,000 ML 999 ML IV ×2 (00:13→03:15)
[2024-11-28 01:27] LABS: Acetaminophen 28.8 ug/mL (10-30); Alanine Aminotransferase 6 U/L (0-33); Albumin Level 3.9 g/dL (3.5-5.2); Alkaline Phosphatase 48 U/L (35-105); Anion Gap 18.1 (5-19); Aspartate Amino Transferase 13 U/L (0-32); Blood Urea Nitrogen 14 mg/dL (6-20); Calcium 8.9 mg/dL (8.5-10.5); Carbon Dioxide 19 mmol/L (22-29); Chloride 104 mmol/L (98-107); Creatinine Clr Calc Pharmacy 98.5563; Globulin 4.1 g/dL (1.3-4.6); Glomerular Filtration Rate 107.2 mL/min (90-130); Glucose 81 mg/dL (65-115); Osmolality Calculated 284 mOsm/kg (285-295); Potassium 4.1 mmol/L (3.5-5.1); Salicylate 12.9 mg/dL (3-10); Sodium 137 mmol/L (136-145); Total Bilirubin 0.4 mg/dL (0.15-1.2)
--- NOTE | 2024-11-28 03:26 | PC.NURSE ---
Patient's blood pressures getting consistently lower with MAP as low as 58. Contacted Dr. Hernández, new order for 1 liter NS bolus received.
[2024-11-28] MEDS: enoxaparin 40 mg/0.4 mL Syringe SUBCUT (03:40)
[2024-11-28 04:07] LABS: Alanine Aminotransferase < 5 U/L (0-33); Albumin Level 3.5 g/dL (3.5-5.2); Alkaline Phosphatase 44 U/L (35-105); Anion Gap 16.6 (5-19); Aspartate Amino Transferase 13 U/L (0-32); Blood Urea Nitrogen 14 mg/dL (6-20); Calcium 8.6 mg/dL (8.5-10.5); Carbon Dioxide 19 mmol/L (22-29); Chloride 106 mmol/L (98-107); Creatinine Clr Calc Pharmacy 98.5563; Globulin 3.6 g/dL (1.3-4.6); Glomerular Filtration Rate 107.2 mL/min (90-130); Glucose 81 mg/dL (65-115); Osmolality Calculated 286 mOsm/kg (285-295); Potassium 3.6 mmol/L (3.5-5.1); Salicylate 12.2 mg/dL (3-10); Sodium 138 mmol/L (136-145); Total Bilirubin 0.3 mg/dL (0.15-1.2); Total Protein 7.1 g/dL (6.6-8.7)
--- NOTE | 2024-11-28 04:21 | PC.NURSE ---
Bolus finished, blood pressure 78/48 MAP 58. Patient easily awakened, states she feels fine , denies any dizziness, weakness, and otherwise asymptomatic. Dr. Hernández notified, continue to monitor.
[2024-11-28 06:03] LABS: Basophils % 0.5 %; Eosinophils # 0.1 10^3/uL (0.0-0.8); Eosinophils % 2.4 %; Hematocrit 26.9 % (36-47); Mean Corpuscular HGB Conc 27.9 g/dL (30-55); Mean Corpuscular Hemoglobin 23.7 pg (27-33); Mean Corpuscular Volume 84.9 fl (85-98); Monocytes # 0.7 10^3/uL (0.2-0.9); Monocytes % 11.3 %; Neutrophils # 2.11 10^3/uL (1.8-7.7); Neutrophils % 35.6 %; Nucleated Red Blood Cells % 0 %; Platelet Count 268 10^3/cmm (157-399); Red Blood Count 3.17 10^6/uL (3.85-5.65); White Blood Count 5.92 10^3/uL (3.29-11.43)
[2024-11-28 06:22] LABS: Magnesium 1.9 mg/dL (1.7-2.3); Phosphorus 3.4 mg/dL (2.5-4.5)
[2024-11-28 06:47] LABS: Alanine Aminotransferase < 5 U/L (0-33); Albumin Level 3.2 g/dL (3.5-5.2); Alkaline Phosphatase 42 U/L (35-105); Anion Gap 17.5 (5-19); Aspartate Amino Transferase 12 U/L (0-32); Blood Urea Nitrogen 15 mg/dL (6-20); Calcium 8.2 mg/dL (8.5-10.5); Carbon Dioxide 16 mmol/L (22-29); Chloride 108 mmol/L (98-107); Creatinine Clr Calc Pharmacy 98.4985; Globulin 3.4 g/dL (1.3-4.6); Glomerular Filtration Rate 107.2 mL/min (90-130); Glucose 85 mg/dL (65-115); Osmolality Calculated 286 mOsm/kg (285-295); Potassium 3.5 mmol/L (3.5-5.1); Sodium 138 mmol/L (136-145); Total Bilirubin 0.2 mg/dL (0.15-1.2); Total Protein 6.6 g/dL (6.6-8.7)
[2024-11-28 07:12] LABS: Salicylate 8.9 mg/dL (3-10)
[2024-11-28 07:23] LABS: Slide Review Slide Review Perform
[2024-11-28] MEDS: levothyroxine 88 mcg Tablet PO (08:05)
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
--- NOTE | 2024-11-28 10:01 | PC.NURSE ---
Patient cleared by Poison Control, they did recommend a PPI.
--- NOTE | 2024-11-28 12:53 | PC.NURSE ---
Katie Garcia sup called report to [facility]. Patient being taken down to [facility] with security at this time
[2024-11-28] MEDS: hyDROXYzine 25 mg Capsule 50 MG PO (13:57)
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
[2024-11-28] MEDS: nicotine 2 mg Gum BUCCAL (15:18)
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
--- NOTE | 2024-11-28 18:12 | P.PN_ITS ---
Subjective 2 Subjective: She is doing better. She has not noticed any outward bleeding. She has history of iron deficiency anemia for which she has been taking iron every other day. Denies any nausea or vomiting. No chest pain or pressure or shortness of breath. Vitals/I&O/Wt Last Vital Signs Temp 98 F 11/28/24 14:00 Pulse 78 11/28/24 14:00 Resp 18 11/28/24 14:00 BP 134/85 11/28/24 14:00 Pulse Ox 98 11/28/24 14:00 O2 Del Method Room Air 11/28/24 13:37 11/28/24 11/28/24 11/28/24 06:59 14:59 22:59 Intake Total 1000 / 1000 1000 / 1000 Balance 1000 / 1000 1000 / 1000 Weight last 48 hrs Weight 59.421 kg Weight 59.421 kg Weight 59.5 kg Weight 60.781 kg Physical Exam 2 Const: COMMON NORMALS: patient oriented x3 and alert GENERAL APPEARANCE: c ooperative ORIENTATION/CONSCIOUSNESS: Yes awake HENMT: COMMON NORMALS: oropharynx normal Neck/C-Spine: COMMON NORMALS: no JVD Resp: COMMON NORMALS: normal respiratory effort and clear to auscultation bilaterally AUSCULTATION: clear to auscultation bilaterally Cardio: COMMON NORMALS: no JVD, regular rhythm, S1 normal heart sound present, S2 normal heart sound present and No murmurs present (Cardio) RHYTHM: regular rhythm HEART SOUNDS: S1 normal heart sound present and S2 normal heart sound present GI: COMMON NORMALS: Normal to inspection, nondistended, normoactive bowel sounds present, Soft to palpation and non-tender PALPATION: Yes Soft to palpation Extremity: COMMON NORMALS: no joint enlargement and no pedal edema Neuro: COMMON NORMALS: patient oriented x3 and moves all extremities S ENSORIUM/ORIENTATION: Yes alert Skin: COMMON NORMALS: no rashes or lesions noted GENERAL SKIN EXAM: no rashes or lesions noted Data 11/28/24 10:06 11/28/24 05:02 A&P Assessment and plan (1) Drug overdose: (2) Suicide attempt: (3) Metabolic acidosis: (4) Microcytic anemia: (5) Anxiety and depression: (6) Hypothyroidism (acquired): Plan Intentional drug overdose Suicide attempt History of anxiety and depression Discussed with psychiatrist worsened depression, suicide attempt. She has done well and monitoring overnight. Without signs of active medication toxicity. Reviewed vitals, CBC, CMP, UDS, EKG. Additionally requested and reviewed TSH, which now is normal. Discussed transfer to neuropsychiatric unit. Will sign off at this time, feel free to call in case of any questions. History of iron deficiency anemia: Discussed with her anemia, hemoglobin came down to 7.5. She has not had any outward bleeding. She has been on iron tablet, has been taking it every other day. She has had an EGD but it was years ago. Discussed with her will need to follow-up with primary provider to further investigate anemia. Repeat hemoglobin requested, up to 8.3. Resume iron. Hypothyroidism: Requested repeat TSH, reviewed, normal. - Continue home Synthroid History of neuropathy - Hold pregabalin due to overdose. Resume when safe per psychiatry. DVT prophylaxis: Heparin CODE STATUS: Full code PDMP PDMP Reviewed: Not Reviewed Attestations 2 Medical Necessity Statement*: Continue admission for assessment management of depression following suicide attempt. and High MDM includes amount and/or complexity of data reviewed/ordered [ resulted lab(s)/test(s), ordered lab(s)/test(s) and other healthcare professional discussion] as documented Diagnoses Drug overdose T50.901A Suicide attempt T14.91XA Metabolic acidosis E87.20 Microcytic anemia D50.9 Anxiety and depression F41.9; F32.9 Hypothyroidism (acquired) E03.9
[2024-11-29 06:00] VITALS: BP 106/66; PULSE 84; RESP 18; TEMP 36.7; O2SAT 96
[2024-11-29] MEDS: nicotine 2 mg Gum BUCCAL (08:55)
[2024-11-29] MEDS: levothyroxine 88 mcg Tablet PO (08:55)
--- NOTE | 2024-11-29 09:46 | PC.NURSE ---
denies si/hi avh at this time. pt became defensive and withdrawn when asked by staff about why she was here at the hospital. did she want to talk about what led her to attempt suicide pt stated that is very private and personal and I should not ask about it.
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
[2024-11-29 14:00] VITALS: BP 109/65; PULSE 79; RESP 16; TEMP 36.5; O2SAT 95
[2024-11-29] MEDS: ibuprofen 600 mg Tablet PO (14:34)
[2024-11-29] MEDS: ondansetron 4 MG Tablet PO (14:34)
[2024-11-29 19:07] VITALS: BP 112/65; PULSE 73; RESP 18; TEMP 36.4; O2SAT 96
[2024-11-30 06:00] VITALS: BP 100/50; PULSE 79; RESP 16; TEMP 37.1; O2SAT 94
[2024-11-30] MEDS: duloxetine 30 mg Capsule PO (09:36)
[2024-11-30] MEDS: levothyroxine 88 mcg Tablet PO (09:36)
[2024-11-30] MEDS: ferrous sulfate EC 325 mg Tablet PO (09:36)
--- NOTE | 2024-11-30 11:09 | P.NPUPN_ITS ---
Subjective NPU 2 Subjective: 49-year-old female with borderline perso nality disorder admitted with depression and an overdose on multiple medications stemming from stress in the home environment. The patient had endorsed significant trauma and reported depressed mood. She had reported that she had been feeling better today and reported having problems with chronic irritability and distrust of others. She also described having significant pain issues that continued today. She had denied any feelings of hopelessness. She had been able to attend group today. She had reported that she was comfortable with returning home and trying to work out her issues with her . She had endorsed some particular problems with loneliness. She had reported having problems with being tired and fatigued often since she had problems with iron deficiency anemia. Mental Status Exam 2 MSE Comments: She is a casually dressed thin white female who appeared her stated age with fair eye contact and normal gait. There was no evidence of any abnormal involuntary motor movements, tics, or tremors appreciated. Her hygiene was limited. She was lying in bed in some distress stating she was in pain. There was evidence of mild to moderate psychomotor retardation. Her speech was slightly decreased in rate and normal in volume. Her mood was described as depressed. Her affect was restricted today and tearful. She was tearful at times during the interview. Her thought process was linear, logical, and goal- directed. Her thought content revealed suicidal ideation with no active homicidal ideation. She did not appear to be responding to internal stimuli. There was no evidence of delusional thinking. She denied any auditory or visual hallucinations. Her attention and concentration were grossly intact. Her insight is limited. Her judgment was poor. Her impulse control appeared guarded. She was alert and oriented to person, place, and time. Her recent and remote memory were grossly intact. Vitals/I&O/Wt Last Vital Signs Temp 98.8 F 11/30/24 06:00 Pulse 79 11/30/24 06:00 Resp 16 11/30/24 06:00 BP 100/50 11/30/24 06:00 Pulse Ox 94 11/30/24 06:00 O2 Del Method Room Air 11/30/24 06:00 Data NPU 11/28/24 10:06 11/28/24 05:02 A&P Assessment and plan (1) MDD (major depressive disorder), recurrent severe, without psychosis: (2) SIMIN (generalized anxiety disorder): (3) PTSD (post-traumatic stress disorder): (4) Medication overdose: (5) Suicide attempt: (6) Borderline personality disorder: Plan 49-year-old female with history of recurrent depressive episodes and generalized anxiety disorder currently admitted after an overdose on multiple medications with suicidal ideation. #1.? Engage patient in individual milieu and group therapy. #2?? Recommend sober living treatment at the highest level of care to which the patient is willing to commit #3??? Begin Cymbalta 30mg daily, restart Pregabalin 150mg bid. #4?? TO-15 minute checks? #5?? Will attempt to gather collateral information PDMP PDMP Reviewed: Not Reviewed Involuntary Hold Information 2 Hold Status: Legal Status: 96 Hour Hold Date/Time Hold Expires: 12/02/24 @ 00:01 Attestations NPU 2 Medical Necessity Statement*: Inpatient hospitalization is medically necessary and deemed to ?be ?the clinically appropriate intervention ?at this time.? We will monitor/initiate medications and make changes as indicated.? The patient?s likely length of stay 1-2 days. Coding Level of Care Code Acute Code for Chg Fwd Diagnoses MDD (major depressive disorder), recurrent severe, without psychosis F33.2 SIMIN (generalized anxiety disorder) F41.1 PTSD (post-traumatic stress disorder) F43.10 Medication overdose T50.901A Suicide attempt T14.91XA Borderline personality disorder F60.3
[2024-11-30] MEDS: nicotine 2 mg Gum BUCCAL ×2 (13:03→17:40)
[2024-11-30 14:00] VITALS: BP 106/61; PULSE 72; RESP 16; TEMP 36.6; O2SAT 99
[2024-11-30 19:35] VITALS: BP 107/58; PULSE 70; RESP 17; TEMP 36.8; O2SAT 98
[2024-12-01 06:00] VITALS: BP 103/53; PULSE 77; RESP 16; TEMP 36.7; O2SAT 97
[2024-12-01] MEDS: ferrous sulfate EC 325 mg Tablet PO (07:58)
[2024-12-01] MEDS: duloxetine 30 mg Capsule PO (07:58)
[2024-12-01] MEDS: levothyroxine 88 mcg Tablet PO (07:58)
[2024-12-01] MEDS: nicotine 2 mg Gum BUCCAL ×4 (07:58→14:03)
[2024-12-01] MEDS: acetaminophen 325 mg Tablet 650 MG PO (09:47)
[2024-12-01] MEDS: pregabalin 150 mg Capsule PO ×2 (11:03→14:03)
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
[2024-12-01 13:16] VITALS: BP 103/53; PULSE 77; RESP 16; TEMP 36.7; O2SAT 97
[2024-12-01 13:47] VITALS: BP 108/62; PULSE 82; RESP 18; TEMP 37; O2SAT 92
== END 2024-12-01 15:49 | disposition home or self-care (01) | DRG 918 ==
LOC: ER 23:26 → ICU 23:41 → NP 11-28 12:59
PROVIDERS: Emergency Medicine; Internal Medicine; Admitting Provider Internal Medicine; Emergency Provider Emergency Medicine; PCP Registered Nurse; Visit Provider Psychiatry & Neurology Psychiatry
DX: T43.222A Poisoning by selective serotonin reuptake inhibitors, intentional self-harm, initial encounter (principal); E87.20 Acidosis, unspecified; R45.851 Suicidal ideations; F33.2 Major depressive disorder, recurrent severe without psychotic features; T39.1X2A Poisoning by 4-Aminophenol derivatives, intentional self-harm, initial encounter; T50.992A Poisoning by other drugs, medicaments and biological substances, intentional self-harm, initial encounter; T39.012A Poisoning by aspirin, intentional self-harm, initial encounter; Y99.9 Unspecified external cause status; F17.200 Nicotine dependence, unspecified, uncomplicated; E03.9 Hypothyroidism, unspecified; D50.9 Iron deficiency anemia, unspecified; G62.9 Polyneuropathy, unspecified; E06.3 Autoimmune thyroiditis; M79.7 Fibromyalgia; F60.3 Borderline personality disorder; F41.1 Generalized anxiety disorder; Z63.8 Other specified problems related to primary support group; T43.612A Poisoning by caffeine, intentional self-harm, initial encounter
CPT/HCPCS: 36415; 80053; 80306; 80307; 83735; 84100; 84443; 85018; 85025; 93005; 96372; 97165; 99285; J1650; J7030; J9999; Q0162

== ENCOUNTER → 2025-01-12 11:11 | Outpatient (BNVA) | payer OTHER, SELFPAY | PROVIDERS: PCP Registered Nurse; Visit Provider Nurse Practitioner | DX: F33.2 Major depressive disorder, recurrent severe without psychotic features (principal); F41.9 Anxiety disorder, unspecified; F33.0 Major depressive disorder, recurrent, mild | CPT/HCPCS: 80061; 83036 ==

== ENCOUNTER → 2025-02-02 11:23 | Outpatient (BNVA) | payer MEDICAID, SELFPAY ==
[2025-01-17 13:59] VITALS: BP 115/73; BMI 25.8
== END ==
PROVIDERS: PCP Registered Nurse; Visit Provider Registered Nurse
DX: F41.9 Anxiety disorder, unspecified (principal); F32.9 Major depressive disorder, single episode, unspecified; E03.9 Hypothyroidism, unspecified
CPT/HCPCS: 82306; 82607; 84443; 85025

== ENCOUNTER 2025-04-07 16:03 | Emergency (ER) | payer MEDICAID, SELFPAY ==
[2025-01-17 13:59] VITALS: BP 115/73; BMI 25.8
[2025-04-07 16:08] VITALS: BP 147/82; PULSE 112; RESP 20; TEMP 36.8; O2SAT 94
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
[2025-04-07] MEDS: HYDROcodone-acetaminophen 5-325 mg Tablet 1 TAB PO (16:47)
[2025-04-07] MEDS: ondansetron hcl ODT 4 mg Tab PO (17:10)
== END 2025-04-07 17:15 | disposition home or self-care (01) ==
PROVIDERS: Emergency Provider Emergency Medicine; PCP Registered Nurse
DX: S40.011A Contusion of right shoulder, initial encounter (principal); S90.01XA Contusion of right ankle, initial encounter; Z72.0 Tobacco use; Y04.2XXA Assault by strike against or bumped into by another person, initial encounter
CPT/HCPCS: 73030; 73610; 99284; J9999; Q0162

== ENCOUNTER → 2025-05-15 08:45 | Outpatient (BNVA) | payer OTHER, SELFPAY ==
[2025-01-17 13:59] VITALS: BP 115/73; BMI 25.8
== END ==
PROVIDERS: PCP Registered Nurse; Visit Provider Registered Nurse
DX: E03.9 Hypothyroidism, unspecified (principal); E61.1 Iron deficiency; F41.9 Anxiety disorder, unspecified; F32.9 Major depressive disorder, single episode, unspecified; I10 Essential (primary) hypertension
CPT/HCPCS: 82306; 82607; 83540; 84439; 84443; 85025